=== PATIENT | female | born 1985 | race American Indian/Alaskan Native ===

== ENCOUNTER 2020-04-15 16:04 | Outpatient (CLI) | payer OTHER, SELFPAY ==
--- NOTE | 2020-04-15 16:26 | XRR_ITS ---
PROCEDURE INFORMATION: Exam: XR Chest Exam date and time: 04/15/2020 5:00 PM Age: 34 years old Clinical indication: Cough; Chest wall pain; Additional info: Cough with left side chest pain TECHNIQUE: Imaging protocol: XR of the chest Views: 2 views. COMPARISON: [place] 1 [place] [id number] 03/31/2018 8:00 PM FINDINGS: Lungs: There is a calcified granuloma in the left lung. No new infiltrates are identified. Pleural spaces: Loculated pleural fluid in the right posterior costophrenic angles not significantly changed compared with 03/31/2018 or 04/30/2015. There is also some focal pleural thickening in the lateral aspect of the left mid left chest not significantly changed. Heart/Mediastinum: Heart is within normal limits of size. Bones/joints: Unremarkable. XR/XR chest 2V* [id number] IMPRESSION: 1. No acute infiltrates. 2. No change in pleural findings
[2020-04-15 17:21] LABS: Basophils # 0.1 10^3/uL (0.0-0.1); Basophils % 0.7 %; Eosinophils # 0.2 10^3/uL (0.0-0.8); Eosinophils % 2.3 %; Hematocrit 40.6 % (37.0-47.0); Hemoglobin 13.7 g/dL (11.5-15.3); Lymphocytes # 2.8 10^3/uL (0.8-4.8); Mean Corpuscular HGB Conc 33.7 g/dL (30.0-36.0); Mean Corpuscular Hemoglobin 29.1 pg (28.0-34.0); Mean Corpuscular Volume 86.4 fL (81-99); Monocytes # 0.4 10^3/uL (0.2-0.9); Monocytes % 5.8 %; Neutrophils # 3.78 10^3/uL (1.8-7.7); Neutrophils % 51.9 %; Nucleated Red Blood Cells % 0 %; Platelet Count 300 10^3/cmm (130-400); Red Cell Distribution Width 12.2 % (12.1-15.1); White Blood Count 7.3 10^3/uL (4.0-10.0)
[2020-04-17 15:59] LABS: Bermuda Class 1; Bermuda Grass (G2) Ige 0.37 kU/L; Cat Dander (E1) Ige <0.10 kU/L; Cat Dander Class 0; Common Ragweed (Short) (W1) Ig 0.19 kU/L; Dog Dander (E5) Ige <0.10 kU/L; Dog Dander Class 0; Elm (T8) Ige <0.10 kU/L; Elm Class 0; English Plantain (W9) Ige 0.14 kU/L; English Plantain Class 0/1; Immunoglobulin E 181 kU/L (<OR=114); Immunoglobulin E 203 kU/L (<OR=114); Johnson Grass (G10) Ige <0.10 kU/L; Johnson Grass Cl 0; June Grass Class 0; June Grass(Kentucky Blue) (G8) <0.10 kU/L; Lamb'S Quarters (Goose Foot) 0.15 kU/L; Lamb'S Quarters Class 0/1; Maple (Box Elder) (T1) Ige <0.10 kU/L; Maple Class 0; Meadow Fescue (G4) Ige <0.10 kU/L; Meadow Fescue Class 0; Oak (T7) Ige <0.10 kU/L; Oak Class 0; Orchard Grass (Cocksfoot) (G3) <0.10 kU/L; Perennial Rye Grass (G5) Ige <0.10 kU/L; Perennial Rye Grass Class 0; Ragweeed Class 0/1; Rough Marsh Elder (W16) Ige 0.22 kU/L; Rough Marsh Elder Class 0/1; Sweet Vernal Class 0; Sweet Vernal Grass (G1) Ige <0.10 kU/L; Timothy Grass (G6) Ige <0.10 kU/L; Timothy Grass Class 0
[2020-04-19 08:43] LABS: Alternaria Alternata (M6) Ige <0.10 kU/L; Alternaria Class 0; D. Farinae Class 2; Dermatophagoides Class 2; Dermatophagoides Farinae (D2) 1.34 kU/L; Dermatophagoides Pteronyssinus 1.52 kU/L; House Dust (Greer) (H1) Ige <0.10 kU/L; House Dust (Hollister- Stier) 0.33 kU/L; House Dust Class 0; House Dust Class 0/1; Mucor Racemosus Class 0; Penicillium Class 0; Penicillium Notatum (M1) Ige <0.10 kU/L
[2020-04-23 16:43] LABS: Aspergillus Fumigatus, Igg Ab, 8.4 mg/L (<=102)
== END 2020-04-15 16:05 | disposition home or self-care (01) ==
PROVIDERS: Visit Provider Internal Medicine Pulmonary Disease
DX: R07.89 Other chest pain (principal); J45.909 Unspecified asthma, uncomplicated; R06.02 Shortness of breath
CPT/HCPCS: 36415; 71046; 82785; 85025; 86003

== ENCOUNTER 2020-04-26 07:50 | Outpatient (CLI) | payer OTHER, SELFPAY ==
--- NOTE | 2020-04-26 08:00 | CT_ITS ---
WS: [id number] CT CHEST INTRAVENOUS CONTRAST HISTORY: Evaluate RIGHT pleural effusion and left pleural thickening TECHNIQUE: Contiguous 5 mm axial imaging performed on the thorax. Coronal and sagittal reformats are submitted. All CT scans at [facility] use at least one of these dose optimization techniq ues: automated exposure control; mA and/or kV adjustment per patient size (includes targeted exams wh ere dose is matched to clinical indication); or iterative reconstruction. CONTRAST: None DLP: 606.5 mGycm COMPARISON: Chest radiograph 04/15/2020, 04/30/2015, CT abdomen 03/31/2018 Pleural thickening and calcification in the medial RIGHT upper thorax. Largest diameter 15 mm. There is associated bronchial thickening and nodularity. There is an additional area of pleural thickening at the RIGHT lung base extending over a length of 5.6 cm and transversely by 9.0 cm. This has been pr esent since 03/31/2018 CT and also on a chest radiograph from 2016. Not definitely increased in size. There is a very small pleural-based nodule at the tooth angles the LEFT lower lobe measuring 1.6 x 0. 8 cm. Area of calcification in the LEFT lower lobe. This calcification is along the inferior major fi ssure. Mediastinum and [place]: Mild prominent soft tissue in the anterior mediastinum is probably residual thy weston tissue. Vessels: Normal size aortic and pulmonary artery. No coronary artery calcifications. Chest wall and lower neck: No soft tissue masses. Upper abdomen: Negative. Osseous structures: No destructive process. CT/CT chest wo con [id number] IMPRESSION: 1. Bilateral lower thorax pleural masses. These masses have been present since at least 2016 as seen on a prior radiograph with no evidence for increase in s ize. 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 Additional calcifi cation along the LEFT inferior major fissure and at the RIGHT apex. May be from prior trauma or granulomatous disease. None of these findings have changed ove r multiple years therefore these are probably benign. Clinically if further leonie luation is necessary consider PET/CT evaluation. 2. Increased soft tissue in the anterior mediastinum is probably residual thym ic tissue.
== END 2020-04-26 07:51 | disposition home or self-care (01) ==
LOC: RADWPI 07:52
PROVIDERS: Visit Provider Internal Medicine Pulmonary Disease
DX: J90 Pleural effusion, not elsewhere classified (principal); D49.89 Neoplasm of unspecified behavior of other specified sites
CPT/HCPCS: 71250